=== PATIENT | female | born 1985 | race Caucasian/White ===

== ENCOUNTER → 2019-05-11 10:27 | Outpatient (CLI) | payer OTHER, SELFPAY ==
--- NOTE | ~2019-05-11 | XR_ITS ---
EXAMINATION: XR chest 2V DATE: 05/11/2019 10:44 INDICATION: Cough. TECHNIQUE: Frontal and lateral views of the chest were obtained. COMPARISON: None. FINDINGS: The chest demonstrates clear lungs without pneumonia, pleural effusion, or pneumothorax. Th e heart size is normal. IMPRESSION: 1. No acute cardiopulmonary disease. Reviewed, dictated and finalized at location A. T TOSSER
== END ==
PROVIDERS: PCP Emergency Medicine; Visit Provider Emergency Medicine
DX: R05 Cough (principal)
CPT/HCPCS: 71046